=== PATIENT | male | born 1985 | race American Indian/Alaskan Native ===

== ENCOUNTER 2018-09-15 10:02 | Day surgery (SDC) | payer MEDICAID ==
[2018-09-15 10:25] VITALS: BMI 21.7
--- NOTE | 2018-09-15 10:35 | CP.SDSHP ---
Same Day Surgery H & P - History Proposed Procedure: Lumbar medial branch nerve blocks Pre-Op Diagnosis: Lumbar spondylosis - Allergies Allergies: Allergies No Known Allergies Allergy (Verified 09/15/18 10:10) - Physical Exam Vital Signs: Vital Signs 09/15/18 09/15/18 09/15/18 10:16 10:18 10:19 Temperature 98.7 F Pulse Rate 89 87 Respiratory 18 Rate Blood Pressure 139/98 H 125/82 O2 Sat by Pulse 98 Oximetry Mental Status: Alert & Oriented x3 Neuro: WNL Heart: WNL Lungs: WNL GI: WNL - Impression Impression: Lumbar spondylosis Pt. Evaluated Today:Candidate for Anesthesia & Procedure: Yes Short Stay Discharge - Short Stay Discharge Admitting Diagnosis/Reason for Visit: M47.817 Disposition: HOME/ ROUTINE
[2018-09-15] MEDS ORDERED: Lactated Ringer's 1,000 ML IV ONE (10:36)
[2018-09-15] MEDS ORDERED: MethylPREDNISolone Depo 40 mg/ml Inj ONE (11:06)
[2018-09-15] MEDS ORDERED: Lidocaine 1% Inj (20ml) ONE (11:06)
[2018-09-15] MEDS ORDERED: Bupivacaine HCl 0.5% PF (30 ml) Inj ONE (11:06)
[2018-09-15] MEDS ORDERED: Propofol 10 mg/ml Inj (20 ML) ONE (11:35)
[2018-09-15] MEDS ORDERED: Lidocaine 1% 5ml Abboject ONE (11:36)
[2018-09-15] MEDS ORDERED: Bupivacaine HCl 0.5% PF (30 ml) Inj IJ ONE (11:41)
[2018-09-15] MEDS ORDERED: Lidocaine 1% Inj (20ml) IJ ONE (11:41)
[2018-09-15] MEDS ORDERED: methylPREDNISolone Depo 80 mg/ml Inj IM ONE (11:41)
[2018-09-15] MEDS ORDERED: HYDROmorphone 0.5 mg/0.5 ml ISec IVP PRN (11:59)
[2018-09-15] MEDS ORDERED: Lactated Ringer's 1,000 ML IV SCH (12:00)
[2018-09-15 13:31] VITALS: BP 124/90; PULSE 72; RESP 18; TEMP 98.6; O2SAT 95
--- NOTE | 2018-09-15 14:08 | RAD ---
Date of service: 09/15/2018 PROCEDURE: Lumbar Epidural Injection HISTORY: PAIN MANAGEMENT TECHNIQUE: Fluoroscopic guidance was provided for epidural injection for pain management purposes. FINDINGS: IMPRESSION: Fluoroscopic guidance provided for epidural injection. Fluoroscopy time = 24.3 sec. Radiation dose = 3.78 mGy. Please refer to the report from LEONCIO Anand for further elaboration on the procedure.
--- NOTE | 2018-09-15 15:46 | PROCN ---
DATE: 09/15/2018 PREOPERATIVE DIAGNOSIS: Lumbar spondylosis. POSTOPERATIVE DIAGNOSIS: Lumbar spondylosis. PROCEDURE: Bilateral L3, L4, and L5 medial branch nerve blocks. ANESTHESIOLOGIST: Don Santiago MD SURGEON: David Sawant MD ANESTHESIA TYPE: Monitored anesthesia care. COMPLICATIONS: None. SPECIMENS: None. DESCRIPTION OF PROCEDURE: As follows: After we had discussion of the procedure with the patient including its risks, benefits, alternatives, outcome data, possibility of no effect or increased pain, the patient consented to the procedure. He denies any recent infection, bleeding tendencies, or being on anticoagulant. A decision was then made to proceed to the OR. The patient was placed on the fluoroscopy table in a prone position with two pillows underneath his abdomen. The back was prepped and draped in the usual sterile fashion, and sterile technique was adhered to during the entire procedure. The L3, L4 and L5 medial branch nerves were located at the intersection of the superior articular process and the transverse process of the corresponding pedicles on the appropriate levels. The procedure was first performed on the right side by turning the fluoroscopy towards the right at approximately 15 degrees. The skin overlying the three above targeted areas was then infiltrated with 1% lidocaine using 25-gauge needle. Subsequently, a 22-gauge 3.5-inch spinal needle was then incrementally advanced under fluoroscopic guidance until tip of the needle made bony contact with all three targeted areas. After satisfactory positioning of all three needles, approximately 3 mL of 0.5% Marcaine and Depo-Medrol mixture was injected. The needle was then removed and the same exact procedure was performed on the contralateral left side using the same medications and techniques. At the end of case, the patient's back was cleaned, and dry bandages were applied. The patient was then transferred to the recovery area in good condition without any signs of [employer] toxicity or any neurological deficit. He will be following in our office in approximately two to four weeks. David Sawant MD
== END 2018-09-15 13:45 | disposition home or self-care (01) ==
LOC: H.OPSURG 10:02
PROVIDERS: ATTEND Anesthesiology
DX: M47.816 Spondylosis without myelopathy or radiculopathy, lumbar region (principal)
CPT/HCPCS: 64493; 64494; J1030; J1040; J2704; J7120